=== PATIENT | female | born 1965 | race Caucasian/White ===

== ENCOUNTER 2020-06-01 12:04 | Outpatient (CLI) | payer MEDICARE ==
[2020-06-01] MEDS ORDERED: MIDAZOLAM 1 MG/ML, 5ML ONE (12:26)
[2020-06-01] MEDS ORDERED: NALOXONE 1 MG/ML, 2ML ONE (12:26)
[2020-06-01] MEDS ORDERED: FENTANYL PF 100 MCG/2ML ONE (12:26)
[2020-06-01] MEDS ORDERED: FLUMAZENIL 0.1 MG/1 ML, 5ML ONE (12:26)
== END 2020-06-01 23:59 | disposition home or self-care (01) ==
LOC: RAD 12:04
PROVIDERS: ATTEND Family Medicine
DX: M54.2 Cervicalgia (principal); M48.02 Spinal stenosis, cervical region; M54.12 Radiculopathy, cervical region; M25.78 Osteophyte, vertebrae; G95.89 Other specified diseases of spinal cord; Z88.0 Allergy status to penicillin; Z88.2 Allergy status to sulfonamides
CPT/HCPCS: 72141; 99156; 99157; J2250; J3010; J2310